=== PATIENT | female | born 1935 | race Caucasian/White ===

== ENCOUNTER → 2017-07-08 | Outpatient (CLI) | payer MEDICARE ==
[~2017-07-08] VITALS: Ht 167.6 cm; Wt 83.9 kg
[~2017-07-08] MED LIST: ALPR.5T PO; ASP81TEC PO; CATHETER FLUSH 10 ML SYR IV PRN; LISI10TA PO; LISI1TAB6 PO; OMEP20TA2 PO; OSLT75C PO; OXYC-12 PO; PNT40TEC PO; PRV20T PO; REGADENOSON 0.4 MG/5 ML SYR (LEXISCAN) IV ONE; SIMV10TA3 PO; URSO250T11 PO; URSO300C9 PO; WRF2T PO; ZLP10T PO
[2017-07-08 09:12] VITALS: BP 185/93
[2017-07-08 09:21] VITALS: BP 190/96
--- NOTE | 2017-07-10 08:32 | STRESS TEST ---
DATE OF SERVICE: 07/08/2017 PROCEDURE: Resting and post-regadenoson technetium-99m tetrofosmin SPECT CT imaging. ORDERING PHYSICIAN: Diamond Jo MD, DAWN, FACP, FACC PRIMARY PHYSICIAN: Dr. Agosto. CLINICAL DIAGNOSIS: Shortness of breath. Baseline images were carried out after injection of 10.92 mCi of technetium-99M tetrofosmin. This was followed by 0.4 mg regadenoson and 29.3 mCi of technetium-99M tetrofosmin. The electrocardiogram showed sinus rhythm at baseline and did not change significantly with regadenoson infusion. She had a transient headache following regadenoson infusion, which resolved shortly thereafter. Overall, she tolerated the procedure well. Review of images at rest and following stress does not indicate any significant perfusion defects consistent with significant myocardial ischemia or infarction. Gated images showed normal global left ventricular systolic function with normal regional wall motion. Left ventricular ejection fraction is calculated to be 77%. Left ventricular end-diastolic volume is 50 mL. TID is absent (0.96.) CONCLUSIONS: 1. No evidence of any significant myocardial ischemia or infarction on this study. 2. Normal regional wall motion. 3. Normal global left ventricular systolic function with a calculated ejection fraction of 77%. Job ID: [id number] DocumentID: [id number] Dictated Date: 07/08/2017 15:48:08 Manager Staffing Date: 07/09/2017 06:37:27 Dictated By: DIAMOND JO MD, DAWN, FACP, FACC,
== END ==
LOC: CARD 07:27
PROVIDERS: ATTEND Internal Medicine Cardiovascular Disease
DX: I10 Essential (primary) hypertension (principal); E78.4 Other hyperlipidemia; I65.23 Occlusion and stenosis of bilateral carotid arteries; R06.02 Shortness of breath
CPT/HCPCS: 78452; 93017

== ENCOUNTER → 2017-07-17 | Outpatient (CLI) | payer MEDICARE ==
[~2017-07-17] MED LIST changes: -CATHETER FLUSH 10 ML SYR IV PRN; -REGADENOSON 0.4 MG/5 ML SYR (LEXISCAN) IV ONE
== END ==
LOC: CARD 08:41
PROVIDERS: ATTEND Internal Medicine Cardiovascular Disease
DX: R06.02 Shortness of breath (principal); I10 Essential (primary) hypertension; E78.4 Other hyperlipidemia; I65.23 Occlusion and stenosis of bilateral carotid arteries
CPT/HCPCS: 93306

== ENCOUNTER → 2018-02-18 | Outpatient (CLI) | payer MEDICARE ==
[~2018-02-18] MED LIST changes: +IOHEXOL 350 MG/ML 150 ML (OMNIPAQUE 350) VIAL IV ONE; +METO-395 PO; +NAPR220C11 PO; +NS 250 ML (IVPB) BAG IV ONE; +TRIA1CAP PO
[2018-02-18 13:28] LABS: ALANINE AMINOTRANSFERASE 10 U/L (0-55); ALBUMIN 4.1 GM/DL (3.2-4.5); ALKALINE PHOSPHATASE 83 U/L (40-136); BILIRUBIN,TOTAL 0.7 MG/DL (0.1-1.0); BUN/CREATININE RATIO 23; CALCIUM 9.8 MG/DL (8.5-10.1); CARBON DIOXIDE 25 MMOL/L (21-32); CHLORIDE 110 MMOL/L (98-107); CREATININE SERUM 0.84 MG/DL (0.60-1.30); GFR ESTIMATED > 60; GLUCOSE 109 MG/DL (70-105); MAGNESIUM 2.1 MG/DL (1.8-2.4); POTASSIUM 3.9 MMOL/L (3.6-5.0); SODIUM 142 MMOL/L (135-145); TOTAL PROTEIN 7.2 GM/DL (6.4-8.2)
--- NOTE | 2018-02-18 14:41 | Diagnostic Imaging Report ---
PROCEDURE: CT angiography of the chest with contrast. TECHNIQUE: Multiple contiguous axial images were obtained through the chest after uneventful bolus administration of intravenous contrast. Reconstructed CTA MIP acquisitions were also performed. INDICATION: Shortness of air on exertion. FINDINGS: Evaluation of the pulmonary arterial system is without evidence of thromboembolism. No filling defects are seen within the central, lobar or segmental branches. The thoracic aorta is normal in caliber. No dissection is seen. No pericardial or pleural fluid is identified. No axillary lymphadenopathy is seen. There are some lymph nodes in the mediastinum. Node in the subcarinal location demonstrates a short axis measurement of 13 mm. This appears similar to prior exam. There appear to be some small nodes in the raine bilaterally as well, similar. Nodes in the prevascular and AP window locations appear similar. Nodular density in the right upper lobe, image 73 is fairly stable approximately 5-6 mm. There is some atelectasis or scarring in the left lower lobe. IMPRESSION: 1. No evidence of pulmonary embolism or thoracic aortic dissection. 2. Fairly stable hilar and mediastinal lymphadenopathy when compared with study dating back to 2011. Right upper lobe nodule appears stable. No acute feature is detected. Dictated by: Dictated on workstation # [id number]
== END ==
LOC: RAD 12:49
PROVIDERS: ATTEND Nurse Practitioner Family
DX: R59.0 Localized enlarged lymph nodes (principal); R91.1 Solitary pulmonary nodule; R06.09 Other forms of dyspnea; I10 Essential (primary) hypertension; I65.23 Occlusion and stenosis of bilateral carotid arteries; E78.4 Other hyperlipidemia
CPT/HCPCS: 36415; 71275; 80053; 83735; 83880

== ENCOUNTER 2018-02-24 06:48 | Day surgery (SDC) | payer MEDICARE ==
[2018-02-24] VITALS (11 sets, daily range): BP systolic 147–235; BP diastolic 69–93
[~2018-02-24] VITALS: Ht 167.6 cm; Wt 83.9 kg
[~2018-02-24 06:48] MED LIST changes: -IOHEXOL 350 MG/ML 150 ML (OMNIPAQUE 350) VIAL IV ONE; -METO-395 PO; -NAPR220C11 PO; -NS 250 ML (IVPB) BAG IV ONE; -TRIA1CAP PO
--- OUTSIDE RECORDS SUMMARY | 2018-02-24 06:57 | XMS REPORT | Continuity of Care Document ---
Author Author [facility] Organization [facility] Address Unknown Phone Unavailable Allergies Active Description Code Type Severity Reaction Onset Reported/Identified Relationship to Patient Clinical Status Yes predniSONE Drug Allergy N/A N/A 10/25/2011 Yes No Known Drug Allergies [id number] Drug Allergy Unknown N/A 11/15/2011 Medications There is no data. Problems Date Dx Coded Attending Type Code Diagnosis Diagnosed By 10/25/2011 SERGE ANGEL DO 401.1 HYPERTENSION, BENIGN ESSENTIAL 10/25/2011 SERGE ANGEL DO 465.9 UPPER RESPIRATORY INFECTION 10/31/2011 SERGE ANGEL DO 382.9 UNSPECIFIED OTITIS MEDIA 10/31/2011 SERGE ANGEL DO 466.0 ACUTE BRONCHITIS 10/31/2011 SERGE ANGEL DO 786.2 COUGH 11/19/2011 SERGE ANGEL DO V67.9 UNSPECIFIED FOLLOW-UP EXAMINATION 12/04/2011 Ot 272.4 HYPERLIPIDEMIA NEC/NOS 12/04/2011 Ot 401.9 HYPERTENSION NOS 12/04/2011 Ot 416.8 CHR PULMON HEART DIS NEC 12/04/2011 Ot 786.09 RESPIRATORY ABNORM NEC 12/04/2011 Ot V58.69 OTH MED,LT, CURRENT USE 05/01/2012 Ot 272.4 HYPERLIPIDEMIA NEC/NOS 05/01/2012 Ot 276.69 OTHER FLUID OVERLOAD 05/01/2012 Ot 285.9 ANEMIA NOS 05/01/2012 Ot 300.00 ANXIETY STATE NOS 05/01/2012 Ot 401.9 HYPERTENSION NOS 05/01/2012 Ot 415.19 OTH PULMON EMBOLISM/INFARCT 05/01/2012 Ot 453.41 ACUTE VENOUS EMBOLISM THROMBOSIS DEEP 05/01/2012 Ot 518.0 PULMONARY COLLAPSE 05/01/2012 Ot 564.00 UNSPEC CONSTIPATION 05/01/2012 Ot 574.20 CHOLELITHIASIS NOS 05/01/2012 Ot 785.6 ENLARGEMENT LYMPH NODES 05/01/2012 Ot 799.02 HYPOXEMIA 05/07/2012 Ot 272.4 HYPERLIPIDEMIA NEC/NOS 05/07/2012 Ot 275.41 HYPOCALCEMIA 05/07/2012 Ot 285.9 ANEMIA NOS 05/07/2012 Ot 300.00 ANXIETY STATE NOS 05/07/2012 Ot 311 DEPRESSIVE DISORDER NEC 05/07/2012 Ot 401.9 HYPERTENSION NOS 05/07/2012 Ot 574.20 CHOLELITHIASIS NOS 05/07/2012 Ot 910.5 INSECT BITE HEAD-INFECT 05/07/2012 Ot E906.4 NONVENOM ARTHROPOD BITE 05/07/2012 Ot V12.51 HX-VENOUS THROMBOSIS EMBOLISM 05/07/2012 Ot V12.55 PERSONAL HISTORY OF PULMONARY EMBOLISM 05/07/2012 Ot V57.1 PHYSICAL THERAPY NEC 05/07/2012 Ot V57.21 ENCOUNTER FOR OCCUPATIONAL THERAPY 10/29/2012 Ot 272.4 HYPERLIPIDEMIA NEC/NOS 10/29/2012 Ot 285.9 ANEMIA NOS 10/29/2012 Ot 401.0 MALIGNANT HYPERTENSION 10/29/2012 Ot 487.1 FLU W RESP MANIFEST NEC 10/29/2012 Ot 574.20 CHOLELITHIASIS NOS 10/29/2012 Ot V12.51 HX-VENOUS THROMBOSIS EMBOLISM 10/29/2012 Ot V12.55 PERSONAL HISTORY OF PULMONARY EMBOLISM 10/29/2012 Ot V58.61 ANTICOAGULANTS,LT,CURRENT USE 01/08/2013 Ot 574.10 CHOLELITH W CHOLECYS NEC 08/13/2013 SERGE ANGEL DO 873.63 OPEN WOUND OF TOOTH (BROKEN) (FRACTURED) (DUE TO TRAUMA) WITHOUT MENTION OF COMPLICATION 04/26/2015 JEOVANY KIMBALL DO Ot 785.6 05/26/2015 JEOVANY KIMBALL DO Ot 785.6 02/09/2016 Ot 397.0 TRICUSPID VALVE DISEASE 02/09/2016 Ot 401.9 HYPERTENSION NOS 02/09/2016 Ot 416.8 CHR PULMON HEART DIS NEC 02/09/2016 Ot 424.0 MITRAL VALVE DISORDER 02/09/2016 Ot 429.3 CARDIOMEGALY 02/09/2016 Ot 745.5 SECUNDUM ATRIAL SEPT DEF 02/09/2016 Ot 786.09 RESPIRATORY ABNORM NEC 02/09/2016 Ot 786.50 CHEST PAIN NOS 02/09/2016 Ot 401.9 HYPERTENSION NOS 02/09/2016 Ot 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 02/09/2016 Ot 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 02/09/2016 Ot V58.61 ANTICOAGULANTS,LT,CURRENT USE 02/09/2016 Ot V58.69 OTH MED,LT, CURRENT USE 02/09/2016 Ot 574.20 CHOLELITHIASIS NOS 02/09/2016 Ot V12.55 PERSONAL HISTORY OF PULMONARY EMBOLISM 02/09/2016 Ot V72.63 PRE- PROCEDURAL LABORATORY EXAMINATION 02/09/2016 Ot V72.83 EXAM PRE- OPERATIVE NEC 02/09/2016 Ot V74.8 SCREEN- BACTERIAL DIS NEC 02/09/2016 JEOVANY KIMBALL DO Ot 785.6 ENLARGEMENT LYMPH NODES 02/12/2016 BAIJEANNIE SEYMOUR L [employer] Ot E78.5 HYPERLIPIDEMIA, UNSPECIFIED 02/12/2016 BAIMALONGJEANNIE L [employer] Ot I07.1 RHEUMATIC TRICUSPID INSUFFICIENCY 02/12/2016 BAIMA JEANNIE L [employer] Ot I34.0 NONRHEUMATIC MITRAL (VALVE) INSUFFICIENC 02/12/2016 BAIMALONGJEANNIE L [employer] Ot I77.9 DISORDER OF ARTERIES AND ARTERIOLES, UNS 02/12/2016 BAIMALONGJEANNIE L [employer] Ot Q21.1 ATRIAL SEPTAL DEFECT 02/29/2016 BAIMA, JEANNIE L [employer] Ot E78.5 HYPERLIPIDEMIA, UNSPECIFIED 02/29/2016 BAIMA, JEANNIE L [employer] Ot I07.1 RHEUMATIC TRICUSPID INSUFFICIENCY 02/29/2016 BAIMA, JEANNIE L [employer] Ot I34.0 NONRHEUMATIC MITRAL (VALVE) INSUFFICIENC 02/29/2016 BAIMA, JEANNIE L [employer] Ot I77.9 DISORDER OF ARTERIES AND ARTERIOLES, UNS 02/29/2016 BAIMALONGJEANNIE L [employer] Ot Q21.1 ATRIAL SEPTAL DEFECT 03/11/2016 BAIMALONGJEANNIE L [employer] Ot E78.5 HYPERLIPIDEMIA, UNSPECIFIED 03/11/2016 BAIMA, JEANNIE L [employer] Ot I07.1 RHEUMATIC TRICUSPID INSUFFICIENCY 03/11/2016 BAIMA, JEANNIE L [employer] Ot I34.0 NONRHEUMATIC MITRAL (VALVE) INSUFFICIENC 03/11/2016 BAIMA, JEANNIE L [employer] Ot I77.9 DISORDER OF ARTERIES AND ARTERIOLES, UNS 03/11/2016 BAIMALONGJEANNIE L [employer] Ot Q21.1 ATRIAL SEPTAL DEFECT 07/07/2017 Ot 401.9 HYPERTENSION NOS 07/07/2017 Ot 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 07/07/2017 Ot 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 07/07/2017 Ot V58.61 ANTICOAGULANTS,LT,CURRENT USE 07/07/2017 Ot V58.69 OTH MED,LT, CURRENT USE 07/07/2017 Ot 574.20 CHOLELITHIASIS NOS 07/07/2017 Ot V12.55 PERSONAL HISTORY OF PULMONARY EMBOLISM 07/07/2017 Ot V72.63 PRE- PROCEDURAL LABORATORY EXAMINATION 07/07/2017 Ot V72.83 EXAM PRE- OPERATIVE NEC 07/07/2017 Ot V74.8 SCREEN- BACTERIAL DIS NEC 07/07/2017 JEOVANY KIMBALL DO Ot 785.6 ENLARGEMENT LYMPH NODES 07/07/2017 JEANNIE MTZ L [employer] Ot E78.5 HYPERLIPIDEMIA, UNSPECIFIED 07/07/2017 LONG MTZHER L [employer]TAIN Ot I07.1 RHEUMATIC TRICUSPID INSUFFICIENCY 07/07/2017 LONG MTZHER L [employer]TAIN Ot I34.0 NONRHEUMATIC MITRAL (VALVE) INSUFFICIENC 07/07/2017 LONG MTZHER L [employer] Ot I77.9 DISORDER OF ARTERIES AND ARTERIOLES, UNS 07/07/2017 BIBI JEANNIE L [employer] Ot Q21.1 ATRIAL SEPTAL DEFECT 07/08/2017 Ot 401.9 HYPERTENSION NOS 07/08/2017 Ot 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 07/08/2017 Ot 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 07/08/2017 Ot V58.61 ANTICOAGULANTS,LT,CURRENT USE 07/08/2017 Ot V58.69 OTH MED,LT, CURRENT USE 07/08/2017 Ot 574.20 CHOLELITHIASIS NOS 07/08/2017 Ot V12.55 PERSONAL HISTORY OF PULMONARY EMBOLISM 07/08/2017 Ot V72.63 PRE- PROCEDURAL LABORATORY EXAMINATION 07/08/2017 Ot V72.83 EXAM PRE- OPERATIVE NEC 07/08/2017 Ot V74.8 SCREEN- BACTERIAL DIS NEC 07/08/2017 JEOVANY KIMBALL DO Ot 785.6 ENLARGEMENT LYMPH NODES 07/08/2017 JEANNIE MTZ L [employer] Ot E78.5 HYPERLIPIDEMIA, UNSPECIFIED 07/08/2017 LONG MTZHER L [employer]TAIN Ot I07.1 RHEUMATIC TRICUSPID INSUFFICIENCY 07/08/2017 LONG MTZHER L [employer]TAIN Ot I34.0 NONRHEUMATIC MITRAL (VALVE) INSUFFICIENC 07/08/2017 JEANNIE MTZ [employer] Ot I77.9 DISORDER OF ARTERIES AND ARTERIOLES, UNS 07/08/2017 JEANNIE MTZ [employer] Ot Q21.1 ATRIAL SEPTAL DEFECT 07/21/2017 CHRISTIN RODNEY FACC, ALI FACP CCDS Ot E78.4 OTHER HYPERLIPIDEMIA 07/21/2017 CHRISTIN RODNEY FACC, ALI FACP CCDS Ot I10 ESSENTIAL (PRIMARY) HYPERTENSION 07/21/2017 CHRISTIN RODNEY FACC, ALI FACP CCDS Ot I65.23 OCCLUSION AND STENOSIS OF BILATERAL BUSH 07/21/2017 CHRISTIN RODNEY FACC, ALI FACP CCDS Ot R06.02 SHORTNESS OF BREATH 07/31/2017 CHRISTIN RODNEY FACC, ALI FACP CCDS Ot E78.4 OTHER HYPERLIPIDEMIA 07/31/2017 CHRISTIN RODNEY FACC, ALI FACP CCDS Ot I10 ESSENTIAL (PRIMARY) HYPERTENSION 07/31/2017 CHRISTIN RODNEY FACC, ALI FACP CCDS Ot I65.23 OCCLUSION AND STENOSIS OF BILATERAL BUSH 07/31/2017 CHRISTIN SAHNIC, ALI FACP CCDS Ot R06.02 SHORTNESS OF BREATH 08/06/2017 CHRISTIN SAHNIC, ALI FACP CCDS Ot E78.4 OTHER HYPERLIPIDEMIA 08/06/2017 CHRISTIN SAHNIC, ALI FACP CCDS Ot I10 ESSENTIAL (PRIMARY) HYPERTENSION 08/06/2017 CHRISTIN SAHNIC, ALI FACP CCDS Ot I65.23 OCCLUSION AND STENOSIS OF BILATERAL BUSH 08/06/2017 CHRISTIN SAHNIC, ALI FACP CCDS Ot R06.02 SHORTNESS OF BREATH 08/22/2017 CHRISTIN SAHNIC, ALI FACP CCDS Ot E78.4 OTHER HYPERLIPIDEMIA 08/22/2017 CHRISTIN RODNEY FACC, ALI FACP CCDS Ot I10 ESSENTIAL (PRIMARY) HYPERTENSION 08/22/2017 CHRISTIN RODNEY FACC, ALI FACP CCDS Ot I65.23 OCCLUSION AND STENOSIS OF BILATERAL BUSH 08/22/2017 CHRISTIN SAHNIC, ALI FACP CCDS Ot R06.02 SHORTNESS OF BREATH 08/28/2017 CHRISTIN SAHNIC, ALI FACP CCDS Ot E78.4 OTHER HYPERLIPIDEMIA 08/28/2017 CHRISTIN SAHNIC, ALI FACP CCDS Ot I10 ESSENTIAL (PRIMARY) HYPERTENSION 08/28/2017 CHRISTIN SAHNIC, ALI FACP CCDS Ot I65.23 OCCLUSION AND STENOSIS OF BILATERAL BUSH 08/28/2017 CHRISTIN RODNEY FACC, ALEKSEY FACJason CCDS Ot R06.02 SHORTNESS OF BREATH 02/19/2018 JEANNIE MTZ [employer] Ot E78.4 OTHER HYPERLIPIDEMIA 02/19/2018 JEANNIE MTZ [employer]TAIN Ot I10 ESSENTIAL (PRIMARY) HYPERTENSION 02/19/2018 JEANNIE MTZ [employer]TAIN Ot I65.23 OCCLUSION AND STENOSIS OF BILATERAL BUSH 02/19/2018 JEANNIE MTZ [employer]TAIN Ot R06.09 OTHER FORMS OF DYSPNEA 02/19/2018 JEANNIE MTZ [employer] Ot R59.0 LOCALIZED ENLARGED LYMPH NODES 02/19/2018 JEANNIE MTZ [employer]TAIN Ot R91.1 SOLITARY PULMONARY NODULE Procedures Code Description Performed By Performed On 37.22 LEFT HEART CARDIAC CATH 04/21/2012 88.53 LT HEART ANGIOCARDIOGRAM 04/21/2012 88.56 CORONAR ARTERIOGR-2 CATH 04/21/2012 38.93 VENOUS CATHETERIZATION NEC 04/25/2012 41.31 BONE MARROW BIOPSY 04/27/2012 Results There is no data. Encounters ACCT No. Visit Date/Time Discharge Status Pt. Type Provider Facility Loc./Unit Complaint [id number] 02/18/2018 12:49:00 02/18/2018 23:59:59 CLS Outpatient TORIJEANNIE SEYMOUR [employer] RAD R06.09 YOUSIF [id number] 07/17/2017 08:41:00 07/17/2017 23:59:59 CLS Outpatient ALEKSEY WALLER MD, FACC, FACP CCDS [facility] CARD SOB R06.02 [id number] 07/08/2017 07:27:00 07/08/2017 23:59:59 CLS Outpatient ALEKSEY WALLER MD, FACC, FACP CCDS [facility] CARD SOB R06.02 [id number] 02/09/2016 07:29:00 02/09/2016 23:59:59 CLS Outpatient BIBILONGJEANNIE L [facility] CARD HLP HTN [id number] 04/04/2015 11:46:00 04/04/2015 23:59:59 CLS Outpatient JEOVANY KIMBALL DO [facility] RAD SWOLLEN LYMPH NODES [id number] 02/24/2018 09:00:00 NANCY WALLER MD FACC, ALEKSEY BYRD CCDS [facility] CATH SOB [id number] 02/09/2016 07:27:00 Document Registration [id number] 01/07/2013 06:48:00 Document Registration [id number] 12/30/2012 11:50:00 Document Registration [id number] 10/29/2012 01:18:00 Document Registration [id number] 05/29/2012 09:47:00 Document Registration [id number] 05/01/2012 09:31:00 Document Registration [id number] 04/20/2012 19:23:00 Document Registration [id number] 12/03/2011 13:47:00 Document Registration [id number] 11/18/2011 09:50:00 Document Registration [id number] 04/04/2015 11:48:18 ACT Document Registration [id number] 08/13/2013 10:29:00 08/13/2013 23:59:59 CLS Outpatient SERGE ANGEL DO
[2018-02-24] MEDS ORDERED: NS IV 1000 ML 1,000 ML IV SCH ×2 (07:00→10:11)
[2018-02-24 07:29] LABS: HEMOGLOBIN 13.8 G/DL (11.5-16.0); RED BLOOD COUNT 4.53 10^6/uL (4.35-5.85); RED CELL DISTRIBUTION WIDTH 13.2 % (10.0-14.5); WHITE BLOOD COUNT 7.4 10^3/uL (4.3-11.0)
[2018-02-24] MEDS ORDERED: HEParin 1000 UNIT/ML (10ML VIAL) FOR BOLUS ONE (07:32)
[2018-02-24] MEDS ORDERED: TRIA1CAP PO (07:49)
[2018-02-24] MEDS ORDERED: METO-395 PO (07:49)
[2018-02-24] MEDS ORDERED: NAPR220C11 PO (07:49)
[2018-02-24 07:53] LABS: ALBUMIN 4.2 GM/DL (3.2-4.5); BILIRUBIN,TOTAL 0.8 MG/DL (0.1-1.0); CALCIUM 9.4 MG/DL (8.5-10.1); POTASSIUM 3.8 MMOL/L (3.6-5.0); TOTAL PROTEIN 7.6 GM/DL (6.4-8.2)
[2018-02-24 08:46] LABS: PROTHROMBIN TIME PATIENT 13.1 SEC (12.2-14.7)
[2018-02-24] MEDS ORDERED: diphenhydrAMINE 50 MG/ML INJ (BENADRYL) ONE (09:13)
[2018-02-24] MEDS ORDERED: MIDAZOLAM 5 MG/5 ML (VERSED) VIAL ONE (09:13)
[2018-02-24] MEDS ORDERED: fentaNYL INJECTION 100 MCG/2 ML AMP ONE (09:13)
--- NOTE | 2018-02-24 10:11 | Cardiac Procedure Note-CS/ASA ---
Pre-Procedure Note Pre-Op Procedure Note H&P Reviewed The H&P was reviewed, patient examined and no changes noted. Date H&P Reviewed: February 24, 2018 Time H&P Reviewed: 09:30 Conscious Sedation Pre-Proced Time Reviewed: 09:30 ASA Class: 3 Airway Mallampati Classification: ([place] appropriate class) I. II. III, IV Lungs Heart ASA score ASA 1: a normal healthy patient ASA 2: a patient with a mild systemic disease (mid diabetes, controlled hypertension, obesity ASA 3: a patient with a severe systemic disease that limits activity (angina , COPD, prior Myocardial infarction) ASA 4: a patient with an incapacitating disease that is a constant threat to life (CHF, renal failure) ASA 5: a moribund patient not expected to survive 24 hrs. (ruptured aneurysm) ASA 6: a declared brain patient whose organs are being harvested. For emergent operations, add the letter E after the classification Grade 3 Sedation Plan: Analgesia, Amnesia, Plan communicated to team members, Discussed options with patient/fam, Discussed risks with patient/fam Note The patient is an appropriate candidate to undergo the planned procedure, sedation, and anesthesia. The patient immediately re-assessed prior to indication. ALEKSEY WALLER MD FACP FAC CCDS February 24, 2018 10:11
--- NOTE | 2018-02-24 10:14 | Discharge Inst-Post CATH ---
Discharge Inst-CATH Post Cardiac Cath D/C Inst Follow Up/Plan F/u with Dr Jo in 2 weeks CARDIAC CATH DISCHARGE INSTRUCTIONS *Hold Metformin for 48 hours post heart cath. ACTIVITY * Go Home directly and rest. * Limit activity of the leg (or wrist if it was used) for 7 days including aerobics, swimming, jogging, bicycling, etc. * Restrict stair-climbing for 7 days if possible, if not, climb up with your non -cath leg, then bring together on the same step. * Avoid lifting, pushing, pulling or excessive movement of the affected extremity for 7 days. * Customary sexual activity may be resumed after 2 days-use caution not to use a position that strains or causes pain to the affected extremity. * No driving for 24 hours. * NO SMOKING. * Avoid straining for bowel movements for 7 days. * Gentle walking on level ground is allowed. * Returning to work will depend on the type of procedure and the results. Your doctor will discuss this with you. CALL YOUR DOCTOR FOR ANY OF THE FOLLOWING: *If bleeding from the puncture site occurs- Apply gentle pressure to site with clean cloth and call your doctor or EMS. * If a knot or lump forms under the skin, increases in size, or causes pain. * If bruising appears to be worsening or moving further down your leg instead of disappearing. * Temperature above 101 F. CARE OF YOUR GROIN INCISION; * Bruising or purple discoloration of the skin near the puncture site is common. * You may shower only, no bathtub bathing for 5 days. Be careful to avoid slipping as your leg may feel stiff. * If a closure device was used on your femoral artery, please see the attached guide regarding care of the device and your leg. * REMOVE the dressing from your groin the next day after your procedure in the shower. CARE OF YOUR WRIST INCISION; * Bruising or purple discoloration of the skin near the puncture site is common. * You may shower. * DO NOT submerge wrist. * Remove dressing in 24 hours. ALEKSEY JO MD FACP [facility] CCDS February 24, 2018 10:14
[2018-02-24] MEDS ORDERED: PATIENT MAY USE OWN MEDS, ALL PO SCH (10:15)
--- NOTE | 2018-02-24 10:15 | Discharge Inst-Cardiology ---
Discharge Inst-Cardiac Discharge Medications Continued Medications: Aspirin (Aspirin Ec 81 Mg) 81 Mg Tabec 81 MG PO DAILY Metoprolol Succinate (Metoprolol Succinate) 100 Mg Tab.er.24h 100 MG PO DAILY, TAB Naproxen Sodium (Aleve) 220 Mg Capsule 220 MG PO PRN, CAP Simvastatin (Simvastatin) 10 Mg Tablet 10 MG PO 1 tablet po daily Triamterene/Hydrochlorothiazid (Dyazide 37.5-25 Capsule) 1 Each Capsule 1 EACH PO DAILY, ALEKSEY TILLEY MD FACP FAC CCDS February 24, 2018 10:15
--- NOTE | 2018-02-24 13:34 | CARDIAC CATHETERIZATION ---
DATE OF SERVICE: 02/24/2018 CARDIAC CATHETERIZATION REPORT INDICATIONS: The patient is an 82-year-old lady, who has been experiencing increasing exertional shortness of breath. She has coronary artery disease risk factors. Cardiac catheterization was carried out today after having obtained an informed consent. DESCRIPTION OF PROCEDURE: She was brought to the cardiac catheterization laboratory in a fasting state. Right groin was prepared and draped in usual sterile fashion. Lidocaine 1% local anesthesia. Modified Seldinger technique was used to advance a 5-[place] sheath into the right femoral artery. A 5-[place] JL4 catheter for left coronary angiography and [place] JR4 catheter for right coronary angiography, a 5-[place] pigtail catheter was used for left heart catheterization, left ventricular angiography. The pigtail catheter was removed. Angiography of the right femoral artery was carried out through the sheath. Mynx was used to achieve hemostasis. She tolerated the procedure well. HEMODYNAMICS: Left ventricular end-diastolic pressure following coronary angiography was 16 mmHg. There is no significant pressure gradient on pullback across the aortic valve. The ascending aortic pressure was 146/56 with a mean of 62 mmHg. CORONARY ANGIOGRAPHY: Mild coronary calcification is seen. Left main coronary artery is free of significant obstructive disease. Left anterior descending artery, left circumflex and right coronary artery do not exhibit any angiographically significant coronary artery disease. Right coronary artery is dominant. LEFT VENTRICULAR ANGIOGRAPHY: Left ventricular angiography was carried out in the right anterior oblique projection. Global left ventricular systolic function normal. No regional wall motion abnormalities are seen. Left ventricular ejection fraction is 65% to 70%. There does not appear to be any significant mitral regurgitation. CONCLUSIONS: 1. Coronary artery disease, mild. 2. Normal global left ventricular systolic function with ejection fraction of 65% to 70%. 3. No significant mitral regurgitation. 4. Mild to moderate elevation of left ventricular end-diastolic pressure. DISCUSSION AND RECOMMENDATIONS: Based on the results of the study, it appears appropriate to continue a conservative approach. Risk factor modification has been reviewed. Outpatient cardiology followup is recommended. Job ID: [id number] DocumentID: [id number] Dictated Date: 02/24/2018 10:07:22 Records Management Assistant Date: 02/24/2018 13:33:59 Dictated By: ALEKSEY WALLER MD, MA, FACP, FACC,
== END 2018-02-24 14:50 | disposition home or self-care (01) ==
LOC: CATH 06:48 → ICU 10:32 → CATH 14:50
PROVIDERS: ATTEND Internal Medicine Cardiovascular Disease
DX: I25.10 Atherosclerotic heart disease of native coronary artery without angina pectoris (principal); I10 Essential (primary) hypertension; E78.5 Hyperlipidemia, unspecified; I65.23 Occlusion and stenosis of bilateral carotid arteries; I07.1 Rheumatic tricuspid insufficiency; Z86.718 Personal history of other venous thrombosis and embolism; Z86.711 Personal history of pulmonary embolism; Z79.82 Long term (current) use of aspirin; Z79.899 Other long term (current) drug therapy
CPT/HCPCS: 36415; 80053; 80061; 85027; 85610; 85730; 87081; 93458

== ENCOUNTER → 2018-03-25 | Outpatient (CLI) | payer MEDICARE ==
[~2018-03-25] MED LIST changes: +METO-395 PO; +NAPR220C11 PO; +RT-ALBUTEROL SULF 2.5 MG/3 ML PRE-MIX VIAL INH ONE; +RT-ALBUTEROL SULF 2.5 MG/3 ML PRE-MIX VIAL ONE; +TRIA1CAP PO
== END ==
LOC: RT 11:17
PROVIDERS: ATTEND Nurse Practitioner Family
DX: R06.02 Shortness of breath (principal); R91.8 Other nonspecific abnormal finding of lung field
CPT/HCPCS: 94060; 94726; 94729

== ENCOUNTER 2018-06-25 09:30 | Outpatient (CLI) | payer MEDICARE ==
[~2018-06-25 09:30] MED LIST changes: -RT-ALBUTEROL SULF 2.5 MG/3 ML PRE-MIX VIAL INH ONE; -RT-ALBUTEROL SULF 2.5 MG/3 ML PRE-MIX VIAL ONE
== END 2018-06-25 09:43 | disposition home or self-care (01) ==
LOC: SLEEP 09:30
PROVIDERS: ATTEND Nurse Practitioner Family
DX: G47.9 Sleep disorder, unspecified (principal); R91.8 Other nonspecific abnormal finding of lung field; J98.4 Other disorders of lung; R06.02 Shortness of breath

== ENCOUNTER → 2019-03-22 | Outpatient (CLI) | payer MEDICARE ==
[~2019-03-22] MED LIST changes: +HOLD METFORMIN - RECEIVED CONTRAST 20 ML VIAL IV SCH; +IOHEXOL 350 MG/ML 100 ML (OMNIPAQUE 350) VIAL IV ONE
[2019-03-22 14:42] LABS: CREATININE SERUM 1.06 MG/DL (0.60-1.30)
--- NOTE | 2019-03-22 15:35 | Diagnostic Imaging Report ---
PROCEDURE: CT chest with contrast only. TECHNIQUE: Multiple contiguous axial images were obtained through the chest after administration of intravenous contrast. Auto Exposure Controls were utilized during the CT exam to meet ALARA standards for radiation dose reduction. INDICATION: History of pulmonary nodules. COMPARISON: 04/24/2012 and 02/18/2018. FINDINGS: Since the previous exam, there has been interval development of nodular and linear densities within the right apex extending to the pleural surface superolaterally. Window Systems Administrator juxtapleural nodule measures 6 mm (image 37, series 601). Previously described micronodule associated with the anterior margins of the minor fissure is partially obscured secondary to motion artifact, but does appear stable when compared to more remote exam dated 04/24/2012. There is no focal consolidation, large effusion, or pneumothorax. Heart remains enlarged. There is no large pericardial effusion. There is mild scattered calcified aortic atherosclerosis. A few small pericardial mediastinal lymph nodes are again noted. No abnormal hilar or axillary adenopathy is seen. Osseous structures show no acute abnormalities. No lytic or blastic bony lesions are seen. Included portions of the upper abdomen are unremarkable. IMPRESSION: 1. Interval development of linear and nodular right apical densities. Findings could be on the basis of developing pleural scarring, but underlying pulmonary neoplasm cannot be entirely excluded. Short-interval follow-up in 4-6 months is recommended. 2. Stable micronodule associated with the right minor fissure. 3. Stable cardiomegaly. 4. Stable borderline prominent mediastinal lymph nodes. Dictated by: Dictated on workstation # [id number]
== END ==
LOC: RAD 14:13
PROVIDERS: ATTEND Nurse Practitioner Family
DX: J98.4 Other disorders of lung (principal); I51.7 Cardiomegaly; R59.0 Localized enlarged lymph nodes; R91.8 Other nonspecific abnormal finding of lung field
CPT/HCPCS: 36415; 71260; 82565; 84520

== ENCOUNTER → 2019-09-30 | Outpatient (CLI) | payer MEDICARE ==
[~2019-09-30] MED LIST changes: -HOLD METFORMIN - RECEIVED CONTRAST 20 ML VIAL IV SCH; -IOHEXOL 350 MG/ML 100 ML (OMNIPAQUE 350) VIAL IV ONE
--- NOTE | 2019-09-30 09:06 | Diagnostic Imaging Report ---
PROCEDURE: CT chest without contrast. TECHNIQUE: Multiple contiguous axial images were obtained through the chest without the use of intravenous contrast. Auto Exposure Controls were utilized during the CT exam to meet ALARA standards for radiation dose reduction. INDICATION: Shortness of breath. FINDINGS: The cardiomegaly noted on the prior exam of 03/22/2019 is again evident and no different. The aorta is not abnormally dilated and similar in appearance to the prior exam. The small nodes in the mediastinum and aorticopulmonary window seen previously are again evident and similar in size to the prior exam. On the previous study, there were linear and nodular densities in the right apex. Those findings are again evident and not significantly changed. I suspect that they are related to scar formation. The previous exam also identified a 6 mm nodule in the right midlung. That finding is again evident and now measures 6.4 mm. The lungs are otherwise generally clear. There is no sign of failure, pneumonia, or pleural effusion. The thyroid gland is generally unremarkable. There is no definite breast mass identified. However, there is a suggestion of 8 mm nodule in the retroareolar region of the right breast. This finding may have been present on the prior exam but was not clearly evident on the 02/18/2018 exam. This finding may merely be secondary to fibroglandular tissue alone. It would be less likely that this is neoplastic in nature. Even so, I would recommend that mammography and ultrasound of the right breast be performed for further evaluation. The sections through the upper abdomen fail to show any sign of an acute abnormality. The bone windows are unremarkable for fracture or for destructive lesion. IMPRESSION: 1. There is no evidence for an acute cardiopulmonary abnormality. 2. The linear nodular densities in the right apex seen previously are again evident and no different. Most likely, this is a secondary to scar formation. 3. The nodule in the right middle lobe seen on the prior study does measure minimally larger on this exam. A short-term (six-month) follow-up CT chest exam would be recommended for continued evaluation. 4. There is cardiomegaly and coronary artery disease. 5. The mediastinal and aorticopulmonary nodes seen previously appear stable. 6. There is a question of a mass in the right breast. Recommendations, as above. Dictated by: Dictated on workstation # [id number]
== END ==
LOC: RAD 07:42
PROVIDERS: ATTEND Nurse Practitioner Family
DX: J98.4 Other disorders of lung (principal); I51.7 Cardiomegaly; I25.10 Atherosclerotic heart disease of native coronary artery without angina pectoris; R91.8 Other nonspecific abnormal finding of lung field; G47.33 Obstructive sleep apnea (adult) (pediatric)
CPT/HCPCS: 71250

== ENCOUNTER → 2019-10-11 | Outpatient (CLI) | payer MEDICARE | LOC: CARD 13:47 | PROVIDERS: ATTEND Nurse Practitioner Family | DX: I08.1 Rheumatic disorders of both mitral and tricuspid valves (principal); I65.23 Occlusion and stenosis of bilateral carotid arteries; E78.5 Hyperlipidemia, unspecified; I10 Essential (primary) hypertension; G47.33 Obstructive sleep apnea (adult) (pediatric) | CPT/HCPCS: 93306 ==

== ENCOUNTER → 2019-12-22 | Outpatient (CLI) | payer MEDICARE ==
[~2019-12-22] MED LIST changes: -METO-395 PO; +MTP100TCR PO
--- NOTE | 2019-12-22 10:28 | Diagnostic Imaging Report ---
EXAMINATION: Ultrasound right breast limited. INDICATION: Abnormal mammogram. FINDINGS: The CT chest exam performed on 09/30/2019 noted a small nodule in the right breast. The diagnostic mammogram performed prior to this study failed to show any sign of malignancy. On this exam, there are a few benign-appearing cysts in the retroareolar region. These measure approximately 5 mm in size. There is also an elongate 33 x 5 x 22 mm anechoic avascular area in the 3 o'clock position roughly 6 cm from the nipple. This is most likely a cyst as well. There is no solid mass to suggest malignancy. IMPRESSION: There are a few benign-appearing cysts in the retroareolar region of the right breast. There is no evidence for malignancy. ACR BI-RADS Category 2: Benign findings. Dictated by: Dictated on workstation # [id number]
--- NOTE | 2019-12-22 11:52 | Diagnostic Imaging Report ---
EXAMINATION: Digital mammogram bilateral diagnostic. INDICATION: Abnormal CT chest exam. The current study was also evaluated with a Computer Aided Detection (CAD) system. 3-D tomosynthesis was also performed and reviewed. There are no prior mammograms available for comparison. The CT chest exam performed on 09/30/2019 did suggest an 8 mm nodule in the retroareolar region of the right breast. The fibroglandular tissue in both breasts is heterogeneously dense. This does limit the sensitivity of this exam. There is no clear evidence for a mass in the retroareolar region of the right breast corresponding with the finding of the CT exam. The tomographic images do suggest there may be one or two small nodules in this area, however. I would recommend that ultrasound be performed for further evaluation. The left breast is unremarkable. IMPRESSION: 1. There is no evidence of malignancy. 2. Ultrasound of the right breast would be recommended for further evaluation. ACR BI-RADS Category 0: Incomplete. (Needs additional imaging evaluation). Result letter will be mailed to the patient. Note: At least 10% of breast cancer is not imaged by mammography. Dictated by: Dictated on workstation # [id number]
== END ==
LOC: RAD 09:11
PROVIDERS: ATTEND Internal Medicine
DX: N60.01 Solitary cyst of right breast (principal)
CPT/HCPCS: 77066

== ENCOUNTER → 2020-03-27 | Outpatient (CLI) | payer MEDICARE ==
--- NOTE | 2020-03-27 13:45 | Diagnostic Imaging Report ---
PROCEDURE: CT chest without contrast. TECHNIQUE: Multiple contiguous axial images were obtained through the chest without the use of intravenous contrast. Auto Exposure Controls were utilized during the CT exam to meet ALARA standards for radiation dose reduction. INDICATION: Pulmonary nodule COMPARISON: 09/30/2019, 03/22/2019 and 04/24/2012 and 02/18/2018. FINDINGS: Lymph nodes within the chest appear stable from prior examinations. In particular, subcarinal lymph node measures 1.0 cm in short dimension, unchanged since February 2018. No definite new adenopathy within the chest. Minimal scattered vascular calcifications. No aneurysmal dilatation of thoracic aorta. The heart is borderline enlarged. No significant pericardial effusion. No pleural effusion. No significant hiatal hernia. No pneumothorax. 0.8 cm right middle lobe pulmonary nodule is again identified. This appears not significantly changed since prior imaging dating back to February 2018. Additional bilateral sub-4 mm pulmonary nodules are again identified, appearing stable. A 6 mm right lower lobe pulmonary nodule, axial image 94, is unchanged since February 2018. No definite new pulmonary nodules or opacities. The trachea is patent. Cholecystectomy. A 1.4 cm exophytic hypodensity arising from the superior pole of the left kidney is not significantly changed since February 2018. Remainder of the visualized upper abdomen is unremarkable. No acute osseous abnormality with scattered osseous degenerative changes. Hemangioma within the mid thoracic spine. IMPRESSION: Stable bilateral pulmonary nodules, largest measuring 8 mm within the right middle lobe. These do not appear significantly changed since prior exams dating back to February 2018. Therefore, these are felt to be benign. No new pulmonary nodule. Additional stable findings as described above. Dictated by: Dictated on workstation # [id number]
== END ==
LOC: RAD 12:44
PROVIDERS: ATTEND Internal Medicine
DX: R91.8 Other nonspecific abnormal finding of lung field (principal)
CPT/HCPCS: 71250

== ENCOUNTER → 2020-09-11 | Outpatient (CLI) | payer MEDICARE | LOC: CARD 11:46 | PROVIDERS: ATTEND Nurse Practitioner Family | DX: I27.21 Secondary pulmonary arterial hypertension (principal); I07.1 Rheumatic tricuspid insufficiency | CPT/HCPCS: 93306 ==

== ENCOUNTER 2021-07-01 20:16 | Emergency (ER) | payer MEDICARE ==
[~2021-07-01] VITALS: Ht 168 cm; Wt 77.0 kg
--- NOTE | 2021-07-01 20:35 | ED Head Injury ---
General Stated Complaint: FALL - KNOT ON HEAD Source: patient, family Exam Limitations: no limitations History of Present Illness Date Seen by Provider: Jul 01, 2021 Time Seen by Provider: 20:32 Initial Comments To ER by private vehicle accompanied by her son with reports of bruising around her eyes after a fall on . She tripped and fell over her own feet striking her head against the wall. No loss of consciousness no headache no nausea no vomiting no neck pain. Baby aspirin only. No other antiplatelet or anticoagulant medications. Occurred: just prior to arrival Severity: moderate Method of Injury: unknown Loss of Consciousness: no loss of consciousness Associated Systoms: Denies Symptoms Allergies and Home Medications Allergies Coded Allergies: No Known Drug Allergies (Unverified , 11/15/11) Patient Home Medication List Home Medication List Reviewed: Yes Aspirin (Aspirin Ec 81 Mg) 81 Mg Tabec, 81 MG PO DAILY, (Reported) Entered as Reported by: ANAIS GARCIA on 12/30/12 1420 Metoprolol Succinate (Metoprolol Succinate) 100 Mg Tab.er.24h, 100 MG PO DAILY, (Reported) Entered as Reported by: TALIA PETERSON on 02/24/1849 Naproxen Sodium (Aleve) 220 Mg Capsule, 220 MG PO PRN, (Reported) Entered as Reported by: TALIA PETERSON on 02/24/1849 Simvastatin (Simvastatin) 10 Mg Tablet, 10 MG PO, (Reported) Entered as Reported by: CHRISTO CASTAÑEDA on 10/28/12 2326 Triamterene/Hydrochlorothiazid (Dyazide 37.5-25 Capsule) 1 Each Capsule, 1 EACH PO DAILY, (Reported) Entered as Reported by: TALIA PETERSON on 02/24/1849 Review of Systems Review of Systems Constitutional: see HPI Eyes: No Symptoms Reported Ears, Nose, Mouth, Throat: no symptoms reported Respiratory: no symptoms reported Cardiovascular: no symptoms reported Genitourinary: no symptoms reported Musculoskeletal: no symptoms reported Skin: no symptoms reported Psychiatric/Neurological: No Symptoms Reported Endocrine: No Symptoms Reported Hematologic/Lymphatic: No Symptoms Reported Past Ipronty-Aumgtc-Qgtpoz Hx Immunizations Up To Date Tetanus Booster (TDap): Less than 5yrs Past Medical History Pulmonary Embolism Reproductive Disorders: No Female Reproductive Disorders: Denies Sexually Transmitted Disease: No HIV/AIDS: No Gall Bladder Disease Arthritis Adverse Reaction/Blood Tranf: Yes Physical Exam Vital Signs Vital Signs - First Documented 07/01/21 20:27 Temp 36.4 Pulse 66 Resp 16 B/P (MAP) 183/77 (112) Pulse Ox 99 O2 Delivery Room Air Capillary Refill : Height, Weight, BMI Height: 5'6.00" Weight: 185lbs. 0.0oz. 83.882552gg; 29.9 BMI Method:Estimated General Appearance: WD/WN, no apparent distress HEENT: PERRL/EOMI, normal ENT inspection (Mild bilateral periorbital ecchymosis. No globe injury. Small hematoma superior to the right eyebrow without open skin) Neck: non-tender, full range of motion Respiratory: no respiratory distress, no accessory muscle use Extremities: normal range of motion, non-tender Psychiatric: alert, oriented x 3 Skin: normal color, warm/dry Bucklin Coma Score Best Eye Response: (4) Open Spontaneously Best Verbal Response: (5) Oriented Best Motor Response: (6) Obeys Commands Susanna Total: 15 Progress/Results/Core Measures Results/Orders My Orders Orders - THERESA HESS APRN Ct Head/Cervical Spine Wo (07/01/21 20:23) Vital Signs/I&O 07/01/21 20:27 Temp 36.4 Pulse 66 Resp 16 B/P (MAP) 183/77 (112) Pulse Ox 99 O2 Delivery Room Air Departure Communication (Admissions) NAME: ANGIE ARAUJO [facility] REC#: [id number] PT STATUS: REG ER : 1935 PHYSICIAN: THERESA HESS APRN ADMIT DATE: 07/01/21/ER Draft Date of Exam:07/01/21 CT HEAD/CERVICAL SPINE WO PROCEDURE: CT head and CT cervical spine without contrast. TECHNIQUE: Multiple contiguous axial images were obtained through the brain and cervical spine without the use of intravenous contrast. Sagittal and coronal reformations through the cervical spine were then performed. Auto Exposure Controls were utilized during the CT exam to meet ALARA standards for radiation dose reduction. INDICATION: Fall four days ago. Left orbit swelling and pain. Erythema of the eyes. Head and neck pain. COMPARISON: 04/04/2015. FINDINGS: CT HEAD: No large acute territorial ischemia, mass or hemorrhage. No midline shift or mass effect. Decreased attenuation is seen in the periventricular and subcortical white matter. The ventricles and cortical sulci are prominent. The basilar cisterns are patent and unremarkable. The calvarium is intact. The visualized paranasal sinuses are clear. The globes and orbits are intact, bilaterally. No post septal inflammatory changes. CT CERVICAL SPINE: No acute fracture or dislocation is seen in the cervical spine. No focal osseous lesion. Prominent Schmorl's node is seen in the superior endplate of C7. The craniocervical junction is well maintained. Mild degenerative changes are seen in the cervical spine with disc osteophyte complexes and uncovertebral arthropathy. Soft tissues of the neck are unremarkable. The included lung apices are clear. IMPRESSION: 1. No hemorrhage or focal intra-axial mass. No CT evidence of large acute territorial ischemia. 2. No acute fracture or dislocation in the cervical spine. 3. Generalized parenchymal volume loss with scattered chronic microvascular disease. 4. No acute abnormality is seen in the globes and orbits. No globe disruption or post septal inflammation. Dictated on workstation # [id number] Dict: 07/01/212057 Trans: 07/01/212103 [facility] [id number] Interpreted by: CARLOS MANUEL PACE DO Electronically signed by: Impression Primary Impression: Forehead contusion Disposition: 01 HOME, SELF-CARE Condition: Stable Departure-Patient Inst. Decision time for Depature: 20:34 Referrals: JEOVANY KIMBALL DO (PCP/Family) Primary Care Physician Patient Instructions: Contusion (DC) Add. Discharge Instructions: . Return to ER for any concerns. This bruising will resolve over the course the next 2 weeks. THERESA HESS [employer] Jul 01, 2021 20:35
--- NOTE | 2021-07-01 21:04 | Diagnostic Imaging Report ---
PROCEDURE: CT head and CT cervical spine without contrast. TECHNIQUE: Multiple contiguous axial images were obtained through the brain and cervical spine without the use of intravenous contrast. Sagittal and coronal reformations through the cervical spine were then performed. Auto Exposure Controls were utilized during the CT exam to meet ALARA standards for radiation dose reduction. INDICATION: Fall four days ago. Left orbit swelling and pain. Erythema of the eyes. Head and neck pain. COMPARISON: 04/04/2015. FINDINGS: CT HEAD: No large acute territorial ischemia, mass or hemorrhage. No midline shift or mass effect. Decreased attenuation is seen in the periventricular and subcortical white matter. The ventricles and cortical sulci are prominent. The basilar cisterns are patent and unremarkable. The calvarium is intact. The visualized paranasal sinuses are clear. The globes and orbits are intact, bilaterally. No post septal inflammatory changes. CT CERVICAL SPINE: No acute fracture or dislocation is seen in the cervical spine. No focal osseous lesion. Prominent Schmorl's node is seen in the superior endplate of C7. The craniocervical junction is well maintained. Mild degenerative changes are seen in the cervical spine with disc osteophyte complexes and uncovertebral arthropathy. Soft tissues of the neck are unremarkable. The included lung apices are clear. IMPRESSION: 1. No hemorrhage or focal intra-axial mass. No CT evidence of large acute territorial ischemia. 2. No acute fracture or dislocation in the cervical spine. 3. Generalized parenchymal volume loss with scattered chronic microvascular disease. 4. No acute abnormality is seen in the globes and orbits. No globe disruption or post septal inflammation. Dictated by: Dictated on workstation # [id number]
[2021-07-01 21:13] VITALS: BP 159/62
== END 2021-07-01 21:13 | disposition home or self-care (01) ==
LOC: EDUNIT# 20:16 → ER 20:18
DX: S05.12XA Contusion of eyeball and orbital tissues, left eye, initial encounter (principal); S05.11XA Contusion of eyeball and orbital tissues, right eye, initial encounter; R40.2410 Glasgow coma scale score 13-15, unspecified time; Z79.82 Long term (current) use of aspirin; W01.198A Fall on same level from slipping, tripping and stumbling with subsequent striking against other object, initial encounter
CPT/HCPCS: 70450; 72125

== ENCOUNTER → 2022-05-08 | Outpatient (CLI) | payer MEDICARE | LOC: CARD 14:00 | PROVIDERS: ATTEND Internal Medicine Cardiovascular Disease | DX: I27.29 Other secondary pulmonary hypertension (principal) | CPT/HCPCS: 93306 ==